=== PATIENT | female | born 1975 | race Caucasian/White ===

== ENCOUNTER 2023-09-08 09:32 | Inpatient (IN) | payer OTHER ==
[2023-09-08 10:08] VITALS: BMI 30.9
[2023-09-08] MEDS ORDERED: LOPERAMIDE HCL 2 MG CAPSULE PO PRN (11:57)
[2023-09-08] MEDS ORDERED: ACETAMINOPHEN 325 MG TABLET (FP) PO PRN (11:57)
[2023-09-08] MEDS ORDERED: ONDANSETRON *ODT* 4 MG TABLET SL PRN (11:57)
[2023-09-08] MEDS ORDERED: MAGNESIUM HYDROX 2400MG/30ML ORAL SUSPENSION 30 ML CUP PO PRN (11:57)
[2023-09-08] MEDS ORDERED: IBUPROFEN 600 MG TABLET (FP) PO PRN (11:57)
[2023-09-08] MEDS ORDERED: MAG HYDROX/AL HYDROX/SIMETH 30 ML UNIT-DOSE CUP PO PRN (11:57)
[2023-09-08] MEDS ORDERED: BENZONATATE 200 MG CAPSULE PO PRN (11:57)
[2023-09-08] MEDS ORDERED: NALOXONE HCL (KLOXXADO) 8 MG SPRAY NS PRN (11:57)
[2023-09-08] MEDS ORDERED: POLYETHYLENE GLYCOL (HEALTHYLAX) 3350 17 GM PACKET PO PRN (11:57)
[2023-09-08] MEDS ORDERED: BENZOCAINE/MENTHOL (CHLORASEPTIC ) LOZENGE MM PRN (11:57)
[2023-09-08] MEDS ORDERED: DICYCLOMINE HCL 10 MG CAPSULE PO PRN (11:57)
[2023-09-08] MEDS ORDERED: guaiFENesin 600 MG TABLET.ER (FP) PO PRN (11:57)
[2023-09-08] MEDS ORDERED: IBUPROFEN 400 MG TABLET (FP) PO PRN (11:57)
[2023-09-08] MEDS ORDERED: NALOXONE HCL 0.4 MG/ML VIAL IM PRN (11:57)
[2023-09-08] MEDS ORDERED: BISMUTH SUBSALICYLATE 524 MG/30 ML PO PRN (11:57)
[2023-09-08] MEDS: METHOCARBAMOL 500 MG TABLET PO PRN (12:33)
[2023-09-08] MEDS: hydrOXYzine PAMOATE 25 MG CAPSULE (FP) PO PRN (12:34)
[2023-09-08] MEDS: chlordiazePOXIDE HCL 25 MG CAPSULE PO SCH (17:08)
[2023-09-08] MEDS: chlordiazePOXIDE HCL 25 MG CAPSULE PO PRN (19:46)
[2023-09-08] MEDS: THIAMINE 100 MG TABLET PO SCH (22:32)
[2023-09-08] MEDS: MELATONIN 5 MG TABLETS PO SCH (22:32)
[2023-09-09] MEDS: NICOTINE 21 MG/24 HOURS TOPICAL PATCH TD SCH (10:29)
[2023-09-09] MEDS: PRENATAL VITAMINS W/ FOLIC ACID TABLET (FP) PO SCH (10:29)
[2023-09-09 10:53] LABS: HEMATOCRIT 41.9 % (32.4-45.2); HEMOGLOBIN 14.3 GM/dL (10.7-15.3); MCH 31.3 pg (25.7-33.7); MCHC 34.1 g/dl (32.0-36.0); MEAN CELL VOLUME 91.7 fl (80-96); MEAN PLT VOLUME 8.6 fl (7.5-11.1); PLATELET COUNT 267 10^3/uL (134-434); RBC 4.57 M/mm3 (3.60-5.2); RDW 14.2 % (11.6-15.6); WHITE BLOOD COUNT 9.2 K/mm3 (4.0-10.0)
[2023-09-09 11:00] LABS: CHLORIDE 110 mmol/L (98-107); POTASSIUM 3.8 mmol/L (3.5-5.1); SODIUM 142 mmol/L (136-145)
[2023-09-09 11:02] LABS: CALCIUM 8.8 mg/dL (8.5-10.1)
[2023-09-09 11:03] LABS: ALBUMIN 3.4 g/dl (3.4-5.0); ANION GAP 6 mmol/L (4-13); BLOOD UREA NITROGEN 10.7 mg/dL (7-18); CO2 25 mmol/L (21-32); GLUCOSE,RANDOM 89 mg/dL (74-106)
[2023-09-09 11:06] LABS: CREATININE 0.5 mg/dL (0.55-1.3); SGOT/AST 20 U/L (15-37); SGPT/ALT 53 U/L (13-61)
[2023-09-09 11:07] LABS: TOT PROT 6.6 g/dl (6.4-8.2)
[2023-09-09 11:08] LABS: ALK PHOS 101 U/L (45-117); BILIRUBIN,TOTAL 0.7 mg/dL (0.2-1)
[2023-09-09] MEDS: PNEUMOC 20-VAL CONJ-DIP CRM/PF 0.5 ML SYRINGE IM ONE (11:19)
[2023-09-09] MEDS: FLU VACCINE (FLULAVAL) PF 60 MCG/0.5 ML SYRINGE 2023-2024 IM ONE (11:21)
[2023-09-09] MEDS: LACTULOSE 20 GM/30 ML UDC (FOR ORAL USE ONLY) PO SCH (17:20)
[2023-09-09] MEDS: SUVOREXANT 10 MG TABLET PO PRN (22:06)
[2023-09-10] MEDS: chlordiazePOXIDE HCL 25 MG CAPSULE PO SCH (05:42)
[2023-09-11] MEDS ORDERED: chlordiazePOXIDE HCL 10 MG CAPSULE PO PRN
[2023-09-11] MEDS: chlordiazePOXIDE HCL 10 MG CAPSULE PO SCH (05:50)
[2023-09-11] MEDS: MELATONIN 5 MG TABLETS PO SCH (22:32)
[2023-09-12] MEDS: chlordiazePOXIDE HCL 10 MG CAPSULE PO SCH (05:04)
[2023-09-12 06:47] VITALS: RESP 16
[2023-09-12 10:01] VITALS: BP 108/64; PULSE 66; TEMP 97.4
[2023-09-13] MEDS ORDERED: chlordiazePOXIDE HCL 10 MG CAPSULE PO ONE (05:00)
== END 2023-09-12 11:57 | disposition home or self-care (01) | DRG 774 ==
LOC: YASAS 09:32 → Y6N 11:40
PROVIDERS: ADMIT Allergy & Immunology; ATTEND Surgery
PROC: HZ2ZZZZ Detoxification Services for Substance Abuse Treatment (ICD-10-PCS; principal; 2023-09-08)
DX: F10.230 Alcohol dependence with withdrawal, uncomplicated (principal); F14.20 Cocaine dependence, uncomplicated; F17.210 Nicotine dependence, cigarettes, uncomplicated; F19.282 Other psychoactive substance dependence with psychoactive substance-induced sleep disorder; F41.8 Other specified anxiety disorders; R79.89 Other specified abnormal findings of blood chemistry; Z28.310 Unvaccinated for COVID-19; Z28.9 Immunization not carried out for unspecified reason
CPT/HCPCS: 36415; 80053; 80307; 82140; 85027; 86780; 90677; 90686; 93005; 93010; G0008